=== PATIENT | male | born 1965 | race Caucasian/White ===

== ENCOUNTER → 2020-06-27 09:15 | Outpatient (CLI) | payer OTHER, SELFPAY | PROVIDERS: PCP Family Medicine; Referring Provider Physician Assistant; Visit Provider Physician Assistant | DX: Z11.59 Encounter for screening for other viral diseases (principal); J06.9 Acute upper respiratory infection, unspecified | CPT/HCPCS: 87635; C9803; U0003 ==

== ENCOUNTER 2023-10-05 13:28 | Emergency (ER) | payer OTHER, SELFPAY ==
[2023-10-05 13:29] VITALS: BP 130/87; PULSE 68; RESP 18; TEMP 36.3; O2SAT 97; BMI 39.9
--- NOTE | 2023-10-05 15:08 | EDS_ITS ---
HPI History of Present Illness Chief Complaint: Dizziness Informant: patient Narrative Narrative: Presents by private vehicle intermittent vertigo symptoms awakening 3 days ago. States with movement feels like he is on a boat. . Intermittent nausea with this. He will come and go. No headaches. No speech change. No hemiparesis. Denies any previous similar symptoms. He does wear hearing aids, denies any tinnitus. Denies sinus congestion or any upper respiratory symptoms. Hypertension diabetes history. Prior similar symptoms: No PFSH PFSH Home Medications amlodipine 2.5 mg tablet 2.5 mg PO DAILY 10/05/23 [History Last Taken Unknown] carvedilol 12.5 mg tablet 25 mg PO BID 10/05/23 [History Last Taken Unknown] dulaglutide 0.75 mg/0.5 mL subcutaneous pen injector (Trulicity) 0.75 mg subcut QWEEK 10/05/23 [History Last Taken Unknown] gabapentin 300 mg capsule 300 mg PO BID 10/05/23 [History Last Taken Unknown] losartan 100 mg tablet 100 mg PO DAILY 10/05/23 [History Last Taken Unknown] meclizine 25 mg tablet 25 mg PO 4X/DAY PRN PRN Dizziness #20 tabs 10/05/23 [Rx Last Taken Unknown] metformin 500 mg tablet,extended release 24 hr 1,000 mg PO BID 10/05/23 [History Last Taken Unknown] rosuvastatin 5 mg tablet 5 mg PO DAILY 10/05/23 [History Last Taken Unknown] Allergy/AdvReac Type Severity Reaction Status Date / Time No Known Allergies Allergy Verified 10/05/23 13:29 Social History Smoking Status: Never smoker ROS ROS ED Constitutional Constitutional ED: Denies chills, fever(s) or sweats Eyes Eyes: Denies change in vision ENT ENT ED: Denies dysphagia or sore throat Cardiovascular Cardiovascular: Denies chest pain, leg edema, palpitations or racing heartbeat Respiratory/Chest Respiratory/Chest: Denies cough, dyspnea or dyspnea on exertion Gastrointestinal Gastrointestinal: Reports nausea; Denies abdominal pain, diarrhea or vomiting Genitourinary Genitourinary ED: Denies dysuria, hematuria or urinary frequency Musculoskeletal Musculoskeletal: Denies back pain, extremity pain or neck pain Integumentary Denies rash or wounds Neurologic Neurologic: Reports other Details: Vertigo ; Denies headache(s), paresthesias or weakness EXAM Physical Exam Const Vital Signs: 10/05/23 13:29 10/05/23 18:08 Temperature 97.4 F L Temperature Source Temporal Pulse Rate 68 64 Respiratory Rate 18 14 Blood Pressure 130/87 H 133/74 H Blood Pressure Mean 101 93 Pulse Ox 97 97 Oxygen Delivery Method Room Air Positive well nourished and well developed General Appearance ED: well developed and NAD HEENT Reports moist mucous membranes normocephalic and atraumatic Eyes PERRL, EOMs intact bilaterally and conjunctivae normal Eyes Narrative: No nystagmus noted General Eye ED: Yes normal appearance of both eyes Neck no lymphadenopathy and supple General: Negative for tenderness Chest Wall Chest: Negative for tenderness Resp normal respiratory effort and normal air movement Effort and Inspection: symmetric chest movement; Negative for respiratory distress Cardio regular rate, regular rhythm and no murmurs Peripheral Pulses: pulses 2+ throughout GI normal to inspection, nondistended, normoactive bowel sounds and non-tender Palpation: Negative for guarding or rebound tenderness present Back/Spine no CVA tenderness and no thoracic nor lumbar tenderness Extremity normal to inspection General Extremety ED: Negative for edema or tenderness General Extremity: Negative for edema Neuro oriented x3, CN's II-XII intact bilaterally and no sensory deficits noted Neuro Narrative: NIH 0. Cerebellar upper and lower intact. [place] was negative however symptomatic with sitting up. Sensorium / Orientation: awake and alert Skin no rashes or lesions noted and no wounds MDM MDM MDM Narrative Medical decision making narrative: Interventions / MDM: Differential diagnosis: Vertigo Diagnosis considered but do not suspect: Posterior CVA My EKG interpretation: Sinus rate of 55, no ST changes, T wave version lead III nonspecific. Imaging independently reviewed and interpreted by myself: CTA head and neck: No intracranial process, hypoplastic left vertebral artery. External documents reviewed: N/A Test considered but not ordered:N/A ED course: Patient intermittent symptoms for 3 days, no focal deficits no nystagmus on exam. [place] symptomatic. Discussed possibility of posterior CVA, he is not a TNK candidate. I ordered for CTA head and neck for evaluation. EKG sinus rhythm. Labs were ordered. IV Reglan. Improving symptoms IV Reglan CT scan noting hypoplastic left vertebral artery. Labs are all stable. He was ambulated very minimal symptoms however slightly improved from the last 3 days. Diabetic, no stroke history. I considered admission with the patient for full stroke up with MRI studies stated at some point he will require 1. Shared decision was made, he would like to follow-up with his PCP for which he has appointment 1 week. I discussed strict return precautions if symptoms return or worsens. All questions were answered. Re-evaluation: stable Disposition discussed with patient/family/significant other: Patient Case discussed with consulting clinician: N/A This note was generated with [employer] dictation software. It may contain incorrect words, spelling, and punctuation that were not noted in checking the note before signing. Patient Lab Data Attestation: I reviewed the patient's lab results. Labs: Laboratory Results - last 24 hr 10/05/23 15:27 WBC 6.8 RBC 4.98 Hgb 14.1 Hct 43.8 MCV 88.0 MCH 28.3 MCHC 32.2 RDW Std Deviation 42.8 RDW Coeff of Karen 13.2 Plt Count 307 MPV 9.0 Immature Gran % (Auto) 0.100 Neut % (Auto) 47.9 Lymph % (Auto) 38.9 [place] % (Auto) 8.7 Eos % (Auto) 3.5 Baso % (Auto) 0.9 Absolute Neuts (auto) 3.3 Absolute Lymphs (auto) 2.65 Nucleated RBC % 0 PT 14.0 INR 1.1 APTT 26.1 Sodium 140 Potassium 4.2 Chloride 109 H Carbon Dioxide 27.0 Anion Gap 4 L BUN 16 Creatinine 0.76 Estim Creat Clear Calc 128.85 Est GFR (MDRD) Af Amer 134 Est GFR (MDRD) Non-Af 111 BUN/Creatinine Ratio 20.9 H Glucose 91 Calcium 9.1 Radiography Diagnostic Testing: Clinical Impression(s) from Imaging Studies Head/Neck CTA 10/05/23 16:06 IMPRESSION: Hypoplastic left vertebral artery. No acute intracranial pathology. Electronically Signed: Troy Fuller DO at 17:02 EST , Discharge Plan Triage Chief Complaint: Dizziness ED Provider: Gregory Willett Dx/Rx/DC Orders Clinical Impression: Vertigo, History of diabetes mellitus Instructions: ED Vertigo, Unspecified Prescriptions: New meclizine [meclizine] 25 mg tablet 25 mg PO 4X/DAY PRN PRN (Reason: Dizziness) Qty: 20 0RF No Action carvedilol 12.5 mg tablet 25 mg PO BID amlodipine 2.5 mg tablet 2.5 mg PO DAILY gabapentin 300 mg capsule 300 mg PO BID losartan 100 mg tablet 100 mg PO DAILY metformin 500 mg tablet extended release 24 hr 1,000 mg PO BID rosuvastatin 5 mg tablet 5 mg PO DAILY Trulicity 0.75 mg/0.5 mL pen injector 0.75 mg SUBCUT QWEEK Patient Comments: q Primary Care Provider: Zak Calles Referrals: Zak Calles MD [Primary Care Provider] - Keep Yol[facility] appointment Activity Restrictions/Additional Instructions: Your CT angiogram head and neck notes a hypoplastic left vertebral artery. No intracranial process. Take meclizine as prescribed. Keep your follow-up with your doctor for further evaluation further testing as an outpatient. You will likely need an MRI of your brain. If Your symptoms recur and worsens, return to the ED for reevaluation. Disposition Disposition: Home, Self Care Discharge Date/Time: 10/05/23 18:10
--- NOTE | 2023-10-05 15:16 | NURSING ---
NO OLD EKGS
[2023-10-05] MEDS: Metoclopramide 10 MG/2 ML Vial 5 MG IV (15:30)
[2023-10-05 15:35] LABS: Absolute Lymphocyte Count 2.65 X10^3/uL (0.83-4.51); Absolute Neutrophil Count 3.3 X10^3/uL (2.0-7.7); Basophil# 0.06 X10^3/uL; Basophil% 0.9 % (0-1); Eosinophil# 0.24 X10^3/uL; Eosinophils% 3.5 % (0-5); Hematocrit 43.8 % (40-54); Hemoglobin 14.1 g/dL (13.0-16.5); Lymphocyte # 2.65 X10^3/ul (0.83-4.51); Lymphocyte % 38.9 % (19-41); Mean Corp Hgb Conc 32.2 g/dL (32-36); Mean Corpuscular Hgb 28.3 pg (27.0-32.0); Monocyte# 0.59 X10^3/uL; Monocyte% 8.7 % (0-10); NRBC Flagged by Analyzer 0 % (0-5); Neutrophil # 3.26 X10^3/uL (2.7-7.7); Neutrophil % 47.9 % (47-70); Platelet Count 307 K/mm3 (150-450); RBC Distribution Width CV 13.2 % (11.6-14.6); RBC Distribution Width SD 42.8 fl (35.1-43.9); Red Blood Count 4.98 M/mm3 (4.6-6.2); White Blood Count 6.8 K/mm3 (4.4-11.0)
[2023-10-05 15:46] LABS: International Normalized Ratio 1.1; Partial Thromboplast Time 26.1 Seconds (24.1-36.2)
[2023-10-05 15:52] LABS: Anion Gap 4 (5-15); BUN 16 mg/dL (7-18); BUN/Creat Ratio 20.9 RATIO (10-20); Calcium,Total 9.1 mg/dL (8.5-10.1); Chloride 109 mmol/L (98-107); Creatinine, Serum 0.76 mg/dL (0.70-1.30); EST Glomerular Filtration Rate 111 mL/min (>60); Est Glom Filt Rate - Afr Amer 134 mL/min (>60); Estimated Creatinine Clearance 128.85 ml/min; Glucose 91 mg/dL (74-106); Potassium 4.2 mmol/L (3.5-5.1); Sodium Level 140 mmol/L (136-145)
--- NOTE | 2023-10-05 16:06 | CT_ITS ---
INDICATION: vertigo EXAMINATION: CT BRAIN WITHOUT CONTRAST, CTA HEAD, AND CTA NECK TECHNIQUE: Noncontrast axial images were obtained of the brain. Subsequently, routine carotid CT angiogram protocol was performed without and with IV contrast. In addition, images were obtained of the [place]. NASCET criteria using the distal ICAs for comparison were used for evaluation of stenoses. 3D reconstructions were reviewed. A radiation dose optimization technique was used for this scan. IV Contrast dosage and agent: COMPARISON: FINDINGS: --CT BRAIN WITHOUT CONTRAST: BRAIN PARENCHYMA: No intra- or extra-axial hemorrhage. No evidence of acute infarct. No intracranial mass or mass effect. There is preservation of the cortés/white matter interface. Posterior fossa structures are unremarkable. CSF SPACES: Appropriate for age. No hydrocephalus. Basal cisterns are patent. CALVARIUM, SKULL BASE, PARANASAL SINUSES AND MASTOID AIR CELLS: Mucosal thickening of the maxillary sinuses. No discrete lytic or blastic abnormalities. --CTA NECK: AORTIC ARCH AND BRANCHES: Normal anatomy, patent. RIGHT CCA: No occlusion, significant stenosis or dissection. RIGHT CAROTID BULB: Mild atherosclerotic calcifications with no hemodynamically significant stenosis. RIGHT ICA: No occlusion, significant stenosis or dissection. LEFT CCA: No occlusion, significant stenosis or dissection. LEFT CAROTID BULB: Mild atherosclerotic calcifications with no hemodynamically significant stenosis. LEFT ICA: No occlusion, significant stenosis or dissection. RIGHT VERTEBRAL ARTERY: No occlusion, significant stenosis or dissection. LEFT VERTEBRAL ARTERY: No occlusion, significant stenosis or dissection. NECK SOFT TISSUES: Unremarkable. Degenerative vertebral changes. --CTA HEAD: --Anterior circulation: ICAs: No significant stenosis at the intracranial/visualized segments. ACAs: No significant stenosis at the visualized segments. ACOM: Nonvisualization. MCAs: No significant stenosis at the visualized segments. --Posterior circulation: PCOMs: Patent bilaterally energy auditor: No significant stenosis at the visualized segments. BASILAR ARTERY: Terminating as the superior cerebellar arteries with no significant stenosis. VERTEBRAL ARTERIES: Hypoplastic left vertebral artery terminating as posterior inferior cerebellar arteries. No evidence of intracranial aneurysm or vascular malformation. CT/CTA Head AND Neck W/ Contrast IMPRESSION: Hypoplastic left vertebral artery. No acute intracranial pathology. Electronically Signed: Troy Fuller DO at 17:02 EST ,
[2023-10-05 18:08] VITALS: BP 133/74; PULSE 64; RESP 14; O2SAT 97
== END 2023-10-05 18:10 | disposition home or self-care (01) ==
PROVIDERS: Emergency Provider Emergency Medicine; PCP Family Medicine; Visit Provider Emergency Medicine
DX: R42 Dizziness and giddiness (principal); E11.9 Type 2 diabetes mellitus without complications; Z79.899 Other long term (current) drug therapy; Z79.84 Long term (current) use of oral hypoglycemic drugs
CPT/HCPCS: 70496; 70498; 80048; 85025; 85610; 85730; 93005; 96374; 99283; Q9967; A4216